=== PATIENT | male | born 1970 | race Caucasian/White ===

== ENCOUNTER → 2016-12-11 | Outpatient (CLI) | payer BC ==
[~2016-12-11] MED LIST: LISI-114 PO
[2016-12-11 12:36] LABS: BASOPHILS % (AUTO) 0.2 % (0-2); EOSINOPHILS % (AUTO) 0.4 % (0-4); HCT - HEMATOCRIT 51.5 % (41-53); HGB - HEMOGLOBIN 17.9 GM/DL (13.5-17.5); IMMATURE GRANULOCYTE # (AUTO) 0.02 T/MM3 (0.00-0.03); IMMATURE GRANULOCYTE % (AUTO) 0.2 % (0.0-0.5); LYMPHOCYTES # (AUTO) 1.7 T/MM3 (1-4.8); LYMPHOCYTES % (AUTO) 20.8 % (23-45); MEAN CORPUSCULAR HGB 34.3 UUG (26-34); MEAN CORPUSCULAR HGB CONC(MCHC 34.8 GM/DL (31-37); MEAN CORPUSCULAR VOLUME 98.7 UM3 (80-100); MEAN PLATELET VOLUME 8.9 UM3 (9.4-12.4); MONOCYTES # (AUTO) 0.5 T/MM3 (0-0.8); MONOCYTES % (AUTO) 5.6 % (0-9.0); NEUTROPHILS % (AUTO) 72.8 % (33-66); RED BLOOD COUNT 5.22 M/MM3 (4.50-5.90); WBC - WHITE BLOOD COUNT 8.3 T/MM3 (4.5-11.0)
[2016-12-11 12:57] LABS: ALBUMIN 4.7 G/DL (3.5-5.0); ALBUMIN/GLOBULIN RATIO 1.5 RATIO (1.1-2.2); ALKALINE PHOSPHATASE 70 U/L (38-126); ALT (SGPT) 62 U/L (21-72); ANION GAP 10 MEQ/L (5-15); AST (SGOT) 50 U/L (17-59); BUN/CREATININE RATIO 7 RATIO (6-26); CALCIUM 10.2 MG/DL (8.4-10.2); CHLORIDE 100 MEQ/L (98-107); CO2 - CARBON DIOXIDE 28 MEQ/L (22-30); GLOMERULAR FILTRATION RATE 80; GLUCOSE 111 MG/DL (75-110); POTASSIUM 4.7 MEQ/L (3.6-5); SODIUM 138 MEQ/L (134-144); TOTAL PROTEIN 7.8 G/DL (6.3-8.2)
--- NOTE | 2016-12-11 13:14 | DI ---
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 Technique: Multiplanar, multisequence, MR imaging of the head without contrast was acquired. FINDINGS: The ventricles are of normal size, shape, and contour for the patient's age. There is a single nonspecific T2/flair white matter hyperintensity in the left frontal lobe measuring 5 mm in size adjacent to the frontal horn of the left lateral ventricle. This is within the normal range for the patient's age. The brain stem, cerebellum, and cerebral hemispheres otherwise have a normal morphologic appearance as well as MR signal intensity on all pulse sequences. There are no areas of restricted diffusion on diffusion weighted imaging to suggest an acute infarct. There is no evidence of an intracranial mass lesion, intracranial hemorrhage, or hydrocephalus. The visualized portions of the orbits, calvarium, paranasal sinuses, and skull base demonstrate no significant abnormality. IMPRESSION: Unremarkable MRI of the head for the patient's age without contrast. .
[2016-12-11 14:50] LABS: THYROID STIM HORMONE-TSH 1.21 MIU/L (0.47-4.68)
[2016-12-12 00:36] LABS: LDL CHOLESTEROL,CALCULATED 105.6 (66-159); RISK FACTOR 2.6 RATIO (0-5.0); VLDL CHOLESTEROL 31.4 MG/DL (0-28)
== END ==
LOC: IMA 11:36
PROVIDERS: ATTEND Family Medicine
DX: G83.22 Monoplegia of upper limb affecting left dominant side (principal); I10 Essential (primary) hypertension; R07.9 Chest pain, unspecified
CPT/HCPCS: 36415; 80053; 80061; 84436; 84443; 84484; 85025; 85379